=== PATIENT | male | born 1950 | race Caucasian/White ===

== ENCOUNTER 2016-08-22 18:59 | Inpatient (IN) | payer MEDICARE ==
[~2016-08-22] VITALS: Ht 177.8 cm; Wt 77.4 kg
--- NOTE | ~2016-08-22 | DS ---
PATIENT'S NAME: CARLY [facility] AGE: 66 Y [address] ROOM: [place] [address] LOCATION: [facility] ADMIT DATE: 08/22/2016 Discharge Summary DISCHARGE DATE: 08/25/2016 FAMILY PHYSICIAN: Snow Madden MD ATTENDING PHYSICIAN: Zackery Tuttle ADMITTING DIAGNOSIS: Seizure. DISCHARGE DIAGNOSIS: Seizure, secondary to alcohol and benzodiazepine withdrawal. SECONDARY DIAGNOSES: 1. Nonischemic cardiomyopathy. 2. Alcohol abuse. 3. Systolic congestive heart failure. 4. Non-obstructive coronary artery disease. 5. Elevated troponin. PROCEDURES: 1. Coronary angiogram. 2. Echocardiogram. 3. Abdominal ultrasound. 4. CT head. CONSULTATION: Neurology and Cardiology. HISTORY OF PRESENT ILLNESS: The patient is a 66-year-old male, who lives in [place], who came to spend August 22 with his friends to [place]. The patient is a chronic user of lorazepam and alcohol abuse. The patient was noted to have seizure-like activity at the outside hospital and was brought here for further evaluation. The patient noted to have postictal confusion. In the emergency room, the patient developed another episode of tonic-clonic seizure and was given Ativan with improvement of symptoms. The patient was admitted to inpatient under Medical Service for seizure activity and possible alcohol withdrawal. HOSPITAL COURSE: The patient was admitted and had CT head and MRI of the brain which showed no intracranial pathology. The patient was also noted to have elevated troponin. Troponin was trended down and was noted to increase. Cardiology was consulted. Echocardiogram was done. Echo showed global hypokinesis with EF of 10%-15%. The patient was seen by Cardiology team and had a coronary angiogram done on August 23, 2016. Angiogram showed 1-vessel coronary artery disease with proximal LAD stenosis of 60%; however, not physiologically significant for stenting. The patient's LVEDP was 14. The PATIENT'S NAME: CARLY [facility] AGE: 66 Y [address] ROOM: [place] [address] LOCATION: [facility] ADMIT DATE: 08/22/2016 Discharge Summary DISCHARGE DATE: 08/25/2016 FAMILY PHYSICIAN: Snow Madden MD ATTENDING PHYSICIAN: Zackery Tuttle patient tolerated the procedure well. The patient was started on core measures for systolic heart failure. The patient was started on lisinopril. We continued the patient's home Coreg and was also on low-dose Lasix. During his stay, the patient was observed for withdrawal and was on CIWA. The patient was seen by neurologist, and Dr. Feldman suggested to start the patient on phenobarbital 30 mg b.i.d. for help with craving and also withdrawal. During his stay, the patient's symptom of withdrawal improved. A long discussion was made with the patient about discontinuation of alcohol abuse. The patient reports that he is ready to discontinue alcohol use. Abdominal ultrasound was also done to evaluate liver. No signs of liver cirrhosis noted on abdominal ultrasound. Discussion was made initially about LifeVest. However, after a long discussion as the patient does not have ischemic cardiomyopathy, LifeVest was withheld and to continue with medical therapy and to be re-evaluated by the patient's all source intelligence technician in [place]. A long discussion was made with the patient and family. The patient is scheduled for cardiology evaluation on Sunday, August 28, 2016. Also, the patient to be followed up by primary care physician. CONDITION: Stable. DISPOSITION: Home. DISCHARGE MEDICATION: Please see MAR. DISCHARGE INSTRUCTIONS: Notify the patient not to operate heavy machinery including car. FOLLOWUP: Follow up with primary care physician and all source intelligence technician as outpatient. Greater than 30 minutes was spent on discharge planning. MD CALIXTO LIANG/julienne /[id number] d: 08/26/16 0258 t: 08/28/16 0920, DISCHARGE SUMMARY
--- NOTE | ~2016-08-22 | CATH ---
Cardiac Diagnostic + PCI Report Demographics Patient Name CARLY KIDD III Gender Male Date of 1950 Age 66 year(s) Patient Number [id number] Date of Study 08/23/2016 Visit Number [id number] Room Number [id number] [id number] Ht 177.8 cm Wt 76.3 kg Referring [facility] Primary Physician Physician Katina Jain MD Performing [facility] Secondary Physician Physician Katina RINALDI Diagnostic [facility] Assisting Physician Physician Katina RINALDI Interventional [facility] Physician Basket Braider Physician Katina RINALDI Findings and Conclusions Diagnostic Findings and Conclusion 1 vessel CAD, proximal LAD 60%. Diagnostic Recommendations iFR of LAD/Diag LVEDP 14 mmHg Interventional Findings and Conclusion iFR LAD is 0.94 iFR Diagonal is 0.98 The lesion in prox LAD is not physiologically significant and revascularization is not recommended Interventional Recommendations Continue medical treatment for cardiomyopathy Counseled against alcohol abuse. Reassess LVEF after maximizing beta blockers and SHMUEL 1 inhibitors for 3 months and reassess need for ICD. Lifevest upon dismissal Procedure Description The patient was brought to the diagnostic cardiac catheterization-EP laboratory in the fasting, non-sedated state. Informed consent was obtained in the written and verbal form after the risks and benefits were explained. The patient had no further questions and agreed to proceed. The planned puncture-incision site(s) were shaved and prepped with ChloraPrep and draped in the usual sterile manner. Conscious sedation, supplemental oxygen, and pain control medications were delivered by a registered nurse under physician guidance. Surface ECG rhythm, blood pressure measurement, and pulse oximetry were monitored throughout the procedure. Arterial access. The access site was infiltrated with lidocaine. The vessel was entered with the Seldinger technique. A sheath was advanced into the vessel and used for catheter placement. Selective left coronary angiography. A catheter was advanced into the left coronary vessel ostium under Fluoroscopic guidance. Contrast was injected by hand. Images were obtained in multiple projections. Selective right coronary angiography. A catheter was advanced into the right coronary vessel ostium under fluoroscopic guidance. Contrast was injected by hand. Images were obtained in multiple projections. Left heart catheterization. A catheter was advanced across the aortic valve to the left ventricle under fluoroscopic guidance. Resting hemodynamics were obtained. iFR measurement was performed. The vessel was entered with a guiding catheter. The iFR wire was normalized and then advanced across the lesion. Measurements were taken. Arterial artery hemostasis was achieved. The patient was transferred to a regular nursing floor via cart accompanied by a nurse. The patient left the laboratory in stable condition. Diagnostic Cath Status: Urgent Procedure Procedure Type Diagnostic procedure:Angiography:, Coronary Angios /[facility] PCI procedure:Additional Imaging:, FFR/iFR:, Initial Vessel Indications: Elevated cardiac enzymes and Low EF. The procedure was explained in detail to the patient. Risks, complications and alternative treatments were reviewed. Written consent was obtained. Medications Reviewed with Patient prior to Procedure. Angiographic Findings Dominance: Right Cardiac Arteries and Lesion Findings LMCA: Normal (0% Stenosis). LAD: Lesion on Prox LAD: Distal subsection.60% stenosis . Devices used - Verrata Pressure Wire. Number of passes: 1. Lesion on 1st Diag: Ostial.20% stenosis . LCx: Normal (0% Stenosis). RCA: Normal (0% Stenosis). Coronary Tree Procedure Data Procedure Date Date: 08/23/2016Start: 01:42 PMEnd: 02:15 PM Entry Locations - Retrograde Percutaneous access was performed through the Right Radial artery (Primary location). A 6 Fr sheath was inserted. Unsuccessful closure attempt was performed using: an R band. Hemostasis was successfully obtained using Mechanical Compression. Closure Comments: 14 cc of air in the R band. Procedure Medications Order and Administration + + + + + !Time !Medication !Dosage !Route ! + + + + + !08/23/2016 01:39 PM !Versed !1 mg !I.V. ! + + + + + !08/23/2016 01:39 PM !Fentanyl !25 mcg !I.V. ! + + + + + !08/23/2016 01:45 PM !Radial Verapamil !2.5 mg !I.A. ! + + + + + !08/23/2016 01:46 PM !Heparin (ACC_3) !2000 units !I.V. bolus ! + + + + + !08/23/2016 01:54 PM !Heparin (ACC_3) !2000 units !I.V. bolus ! + + + + + Devices Used - A5 Fr. BS JR 4 Diag. Catheterwas used for:Right coronary angiography. - A5 Fr. BS JL 3.5 Diag. Catheterwas used for:Left coronary angiography. - A6 Fr. XB 3.5 Guide Catheterwas used for:LAD Intervention. Contrast Material - Isovue 84589 ml Fluoroscopy Time: Diagnostic: 5:36 minutes. Total: 5:36 minutes. Fluoroscopy Dose: Diagnostic: 631 mGy. Total: 631 mGy. Estimated Blood Loss: 10 ml. Medical History Allergies - Other:(Norvas). Risk Factors The patient risk factors include:cerebrovascular disease, treated hypercholesterolemia, treated hypertension, last creatinine: 0.9 mg/dl, creatinine clearance: 84.78 ml/min, dyslipidemia and prior heart failure . Admission Data Admission Date: 08/22/2016 Admission Time: 10:48 PM Admit Source: Emergency department Insurance Payors: None. Admission Medications + +------+------+ + + + + !Medication !Dosage!Times !Last !Last !Administered !Comments ! ! ! !Per !Delivery !Delivery ! ! ! ! ! !Day !Date !Time ! ! ! + +------+------+ + + + + !Aspirin ! ! ! ! !Yes ! ! !(any) ! ! ! ! ! ! ! + +------+------+ + + + + !Beta ! ! ! ! !Yes ! ! !Cole ! ! ! ! ! ! ! !(any) ! ! ! ! ! ! ! + +------+------+ + + + + !Statin ! ! ! ! !Yes ! ! !(any) ! ! ! ! ! ! ! + +------+------+ + + + + Clinical Evaluation Leading to Procedure - The patient's CAD presentation was assessed as: Non-STEMI. - There were no anginal symptoms. Anti-anginal medications were prescribed during the past two weeks. The medication is: Beta Blockers. - The patient has been in a state of heart failure within the past two weeks. - The patient's heart failure status was assessed as NYHA Class II. - The reason for the patient's school laboratory technician visit is evaluation of cardiomyopathy and/or evaluation of left ventricular systolic dysfunction. Hemodynamics Condition: Rest O2 Consumption: Estimated: 192.26Heart Rate: 25 bpm Pressures (mmHg) +-----+ + !Site !Pressure ! +-----+ + !LV !92/5 ,15 ! +-----+ + !LV !/7 ,13 ! +-----+ + !AO !91/55 (73) ! +-----+ + !LV !/6 ,13 ! +-----+ + !AO !86/60 (74) ! +-----+ + !AO !85/61 (73) ! +-----+ + Valve Gradients and Areas + +---------+---------+---------+ +---------+ + !Valve !Peak !Mean !Area !Index !Flow !Source ! + +---------+---------+---------+ +---------+ + !Aortic !3 !3 ! ! ! ! ! + +---------+---------+---------+ +---------+ + !Aortic !3 !3 ! ! ! ! ! + +---------+---------+---------+ +---------+ + Shunts Oxygen Values O2 Capacity 180.88 O2 Consumption 192.26 Signatures dtt: KATINA NICHOLS dtd: 08/23/16 1342 Physician Self Edit
--- NOTE | ~2016-08-22 | CON ---
PATIENT'S NAME: CARLY [facility] AGE: 66 Y [address] ROOM: [place] [id number] LOCATION: [facility] ADMIT DATE: 08/22/2016 Consultation DISCHARGE DATE: FAMILY PHYSICIAN: PHYSICIAN, UNKNOWN ATTENDING PHYSICIAN: NY DICKERSON DATE OF CONSULTATION: 08/23/2016 REFERRING PHYSICIAN: ROBERT YO MD CARDIOLOGY CONSULTATION REASON FOR CARDIOLOGY CONSULTATION: Elevated troponins. HISTORY OF PRESENT ILLNESS: This is a 66-year-old male who experienced three tonic-clonic seizures yesterday while at a 22 of August constitution party with his friends. He denies any recent history of chest pain, shortness of breath, dyspnea on exertion, palpitations, presyncope, or syncope. He states he does have a history of congestive heart failure and had a previous episode of "elevated heart enzymes" in the past. The patient lives in [place] and once again, was visiting friends for the holiday. He denies any recent changes to his health, and denies any feelings of not feeling well or recent need for medical attention. PAST MEDICAL HISTORY: 1. Hypertension. 2. Congestive heart failure. 3. Depression and anxiety disorder. 4. Chronic alcohol use. PAST SURGICAL HISTORY: Tonsillectomy. FAMILY HISTORY: The patient's father suddenly in his 70s due to "his heart stopped." His mother had a history of lung cancer. SOCIAL HISTORY: The patient is a chronic alcohol user. He drinks two alcohol drinks per day and has done so for multiple years. He denies tobacco or other illicit drug use. CURRENT MEDICATIONS: 1. Heparin IV per ACS protocol. 2. Nitroglycerin IV as titration per chest pain. PATIENT'S NAME: CARLY [facility] AGE: 66 Y [address] ROOM: [id number] [address] LOCATION: [facility] ADMIT DATE: 08/22/2016 Consultation DISCHARGE DATE: FAMILY PHYSICIAN: PHYSICIAN, UNKNOWN ATTENDING PHYSICIAN: NY DICKERSON 3. Lopressor 25 mg p.o. twice daily. 4. Valium 5 mg p.o. every 6 hours. MEDICATION ALLERGIES: Norvasc causing angioedema. REVIEW OF SYSTEMS: Pertinent positive review of systems as listed in the HPI. All other review of systems evaluated and negative. DIAGNOSTICS: Cardiac enzyme evaluation shows a CPK of 118, then 136, then 168; CK-MB of 3.1, then 5.6, then 8.0; and troponin I of 0.112, then 1.25, and finally 2.23. He has a D-dimer level of 0.57, and a proBNP of 7253. CMS evaluation shows a sodium of 143, potassium of 3.5, BUN of 10, creatinine 0.9, glucose of 131, and a magnesium of 2.0. PHYSICAL EXAMINATION: VITAL SIGNS: Temperature 97.9, pulse 76, respirations are 11, blood pressure 141/91, and O2 saturation 96% on 2 L nasal cannula. The patient weighs 109.5 kg. SKIN: [place], warm, and dry. EYES: Sclerae clear. No xanthelasmas. ENT: Oral mucosa is pink and moist. No jugular venous distention. No carotid bruits. CHEST: Respirations are even and unlabored. Lung sounds are clear to bilateral upper lobes. They are diminished to bilateral lower lobes. HEART: Regular rate and rhythm. Normal S1 and S2. No murmurs, rubs, or gallops. ABDOMEN: Soft and nontender. MUSCULOSKELETAL: Equal muscle strength in upper and lower extremities bilaterally against resistance. EXTREMITIES: Peripheral pulses palpable. No clubbing, cyanosis, or edema. PSYCHIATRIC: Alert and oriented. Mood and affect are appropriate. IMPRESSION AND PLAN: Per Dr. Katina Hinkle: 1. Elevated cardiac enzymes. 2. History of heart failure. 3. Status post tonic-colonic seizure, awaiting Neurology evaluation. This patient is experiencing a non-ST elevation myocardial infarction with a highest troponin so far of 2.23. Evaluation of his echocardiogram also shows cardiomyopathy with severely reduced left ventricular ejection fraction. He has [place] Heart [employer] Class 2 with mild volume overload noted. He is once again, status post seizure and awaiting Neurology evaluation. We will PATIENT'S NAME: BERNABE CARROLL [facility] AGE: 66 Y [address] ROOM: [id number] [place], [place] [address] LOCATION: [facility] ADMIT DATE: 08/22/2016 Consultation DISCHARGE DATE: FAMILY PHYSICIAN: PHYSICIAN, UNKNOWN ATTENDING PHYSICIAN: [place] DICKERSON need to proceed with heart catheterization after his neurological evaluation to fully evaluate coronary anatomy. We will also plan to start an SHMUEL inhibitor after his catheterization. We will continue heparin and get his previous cardiac records for full evaluation of previous history. We will also start him on beta-juancarlos 6.25 mg p.o. twice daily, lisinopril 2.5 mg p.o. daily tomorrow morning, and we will check a fasting lipid panel. We will continue to monitor, evaluate, and treat as appropriate. Thank you for this consult. Thank you for allowing [facility] to interact in the care of this patient. ROSSI CLAUDIO APRN FOR MD SAMUEL MCDONALD/julienne /[id number] d: 08/23/16 1149 t: 08/30/16 1729, CONSULTATION REPORT
--- NOTE | ~2016-08-22 | ER ---
PATIENT'S NAME: CARLY [facility] AGE: 66 Y [address] ROOM: [place] [address] LOCATION: [facility] ADMIT DATE: 08/22/2016 ER/Outpatient Report DISCHARGE DATE: FAMILY PHYSICIAN: PHYSICIAN, UNKNOWN ATTENDING PHYSICIAN: NY DICKERSON Admission date and time documented in the medical record. I saw the patient at 1900 hours. CHIEF COMPLAINT: First-time seizure activity. HISTORY OF PRESENT ILLNESS: The patient is a 66-year-old male from [place]. The patient was out here with some friends. He got a get together on August 22, 2016. Early this evening, he was at a friend's house and had a witnessed seizure activity. The first seizure apparently lasted about 2 minutes, followed by the second seizure that lasted 3 minutes. He was postictal. Paramedics did arrive and brought the patient to the emergency room for evaluation via ambulance. On arrival, the patient was awake, responsive, oriented. He had no complaints of headache, eyes, ears, nose, throat, neck, or spine pain. No chest pain, shortness of breath. He was not diaphoretic. No abdominal pain, nausea, or vomiting. No incontinence of stool or urine. He was not breathless or pulseless. The patient does have a history of depression, hypertension, and he is on blood pressure medications, antidepressive medication. No known heart disease, lung disease. No endocrine problems, diabetes, or thyroid disease. No recent coughs, colds, flus, fever, chills, or sweats. No joint or muscle swelling, redness, or pain. No skin eruptions or rash. He has had no lightheadedness or dizziness. No history of seizure activity or other neurological problems. No endocrine problems. He does have a history of depression with some anxiety. HOME MEDICATIONS: See attached medication list. ALLERGIES: SOME TYPE OF ANTIHYPERTENSIVE, BUT HE DOES NOT KNOW THE NAME OF IT. SOCIAL HISTORY: Nonsmoker, moderate intake of alcohol. SIGNIFICANT PAST MEDICAL HISTORY: Depression, hypertension, fluid retention. OPERATIONS: PATIENT'S NAME: CARLY [facility] AGE: 66 Y [address] ROOM: [address] [address] LOCATION: [facility] ADMIT DATE: 08/22/2016 ER/Outpatient Report DISCHARGE DATE: FAMILY PHYSICIAN: PHYSICIAN, UNKNOWN ATTENDING PHYSICIAN: [place] DICKERSON Tonsillectomy and adenoidectomy. REVIEW OF SYSTEMS: All systems reviewed by me are negative with the exception of those discussed in the history of present illness. PHYSICAL EXAMINATION: VITAL SIGNS: Temperature 98, pulse 97, respirations 16, blood pressure 156/88, O2 saturation on room air is 98%. HEAD: Normocephalic. No abrasion, contusion, laceration, swelling of the scalp or face. EYES: Extraocular muscles intact. PERRL. Sclerae and conjunctivae clear, nonicteric. EARS, NOSE, THROAT: Clear. Mucous membranes moist. NECK: Negative. SPINE: Negative. LUNGS: Clear. Good air flow. No rales, rhonchi, or wheezes. HEART: Regular. Pulses are palpable. No chest wall or ribcage pain to palpation. ABDOMEN: Soft, nondistended, nontender. Active bowel tones. No organomegaly or abnormal mass palpable. No CVA tenderness. EXTREMITIES: Intact. NEUROVASCULAR: Intact. SKIN: Clear. No skin eruptions or rash. LABORATORY DATA AND X-RAYS: CT scan of the head showed no intracranial bleed, midline shift, mass effect, or skull fracture. EKG showed sinus rhythm. No acute ST elevation, ischemic change, or arrhythmia x2 two hours apart. CMS was normal except for an elevated glucose 195, low calcium of 8.2, elevated total bilirubin 1.7, elevated alkaline phosphatase 238, elevated AST of 73. Magnesium was 2. Medical blood alcohol was normal, less than 0.01. CPK was 118. Initial CK-MB was normal at 3.1; his 2-hour CK-MB was elevated at 5.6. Initial troponin was elevated at 0.112; his 2-hour troponin was elevated at 1.25. Urine drug screen was negative. Urinalysis was clear. Serum acetaminophen and serum salicylate levels were normal. Prolactin was normal at 7.5. White count was 9600, 80 segs, 7 lymphs, 13 monos, hemoglobin was 14.2 with hematocrit 40.5, platelet count 133,000. PTT was 25, pro-time was 11.1 with an INR 1.06. Chest x-ray showed no acute infiltrate or changes. We will review x-ray with the radiologist. CT scan of the head showed no intracranial bleed, midline shift, mass effect, or skull fracture. PATIENT'S NAME: BERNABE CARROLL [facility] AGE: 66 Y [address] ROOM: [address] [address] LOCATION: [facility] ADMIT DATE: 08/22/2016 ER/Outpatient Report DISCHARGE DATE: FAMILY PHYSICIAN: PHYSICIAN, UNKNOWN ATTENDING PHYSICIAN: [place] DICKERSON EMERGENCY DEPARTMENT COURSE: The patient was started on IV normal saline and fluids. I did discuss my findings with the patient. Told him that he needed to be hospitalized and have his heart checked out and probably have an EEG. He did agree to that. Short time later, he got anxious and had a short seizure and was a little bit postictal. I did give him 1 mg of Ativan. IMPRESSION: 1. Seizure activity, first time, with no known history of seizure activity or family history of seizures. His prolactin level was normal. 2. Elevated cardiac enzymes, CK-MB, and troponin, etiology is undetermined at this time but needed to have a complete cardiac evaluation. 3. Elevated glucose at 195, no history of diabetes. 4. Hypertension. 5. Depression and anxiety. 6. Mild thrombocytopenia. PLAN: I did discuss the patient with Dr. Townsend who thought he needed to be admitted for heart evaluation. I did talk with Dr. Dickerson, hospitalist, who will admit the patient to the hospital for further evaluation and treatment. The patient most likely will need to have Neurology consult and evaluation also, along with EEG, possible echocardiogram, stress test, possible cardiac cath. I again discussed my findings with the patient. He understands. MD FABRIZIO GRANT/modl /[id number] d: 08/23/165 t: 08/23/16 1809, OUTPATIENT REPORT
--- NOTE | ~2016-08-22 | CON ---
PATIENT'S NAME: BERNABE CARROLL [facility] AGE: 66 Y [address] ROOM: [id number] [place], [place] [address] LOCATION[facility] ADMIT DATE: 08/22/2016 Consultation DISCHARGE DATE: FAMILY PHYSICIAN: Justin Canales ATTENDING PHYSICIAN: NY DICKERSON DATE OF CONSULTATION: 08/23/2016 REFERRING PHYSICIAN: ROBERT YO MD NEUROLOGY CONSULTATION TIME SEEN: 6:00 p.m. HISTORY OF PRESENT ILLNESS: Mr. Carroll came in the overnight with a generalized tonic-clonic seizure. The patient never had a seizure before in his life. He is a known heavy alcoholic for many years drinking upwards of decades. He has some evidence in the past according to his family of liver cirrhosis, and now he is known to have likely a cardiomyopathy, possibly associated with alcohol use for years. He came in as part of his workup for noted elevation in troponin. Today, he had a cardiac catheterization, which showed no significant evidence for coronary artery disease associated with his severely decreased ejection fraction of nearly 15%. 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 The etiology for his generalized seizure is probably from him acutely stopping 2 medications; one was the Wellbutrin, which he is on for depression, the other one is Ativan, additionally used on a fairly frequent basis, almost on a daily basis for anxiety. The patient simply had run out of this medication for upwards of 5 days. Since he did not stop alcohol use, it was unlikely that this was an alcohol withdrawal seizure. It is known that alcohol withdrawal seizures are usually within 24 hours of stopping alcohol, and again the patient did not stop alcohol, but delayed seizures are often associated with medication withdrawal, perhaps up to a few days. This seems to be the case with this patient. Today, the patient was alert and oriented, though he was on CIWA protocol for alcohol withdrawal. He clearly had some symptoms of alcohol withdrawal where he appeared to be sitting in bed a bit agitated, but nonetheless was able to give a very adequate history. He seemed very fidgety. Often times, he had to sit up and move around. He was noted to be tachycardic on the monitor. Clear signs of some alcohol withdrawal symptomatology; however, he was not confused. He did not have any delirium at all. During his time here, he had no fevers. His laboratory results do show evidence for acute alcohol use from low platelet count as well as AST out of proportion to ALT. He admits that he is an alcoholic, and he has used his medications for PATIENT'S NAME: BERNABE CARROLL [facility] AGE: 66 Y [address] ROOM: [id number], [place] [address] [facility] ADMIT DATE: 08/22/2016 Consultation DISCHARGE DATE: FAMILY PHYSICIAN: Physician, New ATTENDING PHYSICIAN: NY DICKERSON. He has suffered from this for decades, and it got worse after the of his nearly 15 years ago. SOCIAL HISTORY: He lives alone. He has 2 young sons, who fairly involved in his medical care. They were present today. He is mostly sedentary but does do some work around the house. He does go once the year to the [facility] for vacation where he has an old family home, otherwise he occasionally does do some chores outside of the home. Admits to very little activity otherwise. Does not smoke cigarettes. He does not use illicit drugs other than alcohol. FAMILY HISTORY: Noncontributory here. There is no history of seizures. No history of stroke in this patient. MEDICATIONS: 1. Phenobarbital 30 mg twice a day started by myself today. 2. Carvedilol 3.125 mg twice a day. 3. Lisinopril 2.5 mg p.o. daily. 4. Lorazepam is given on a [facility] protocol. 5. Atorvastatin and aspirin are currently ordered but being held presently. REVIEW OF SYSTEMS: Mr. Carroll has a known history of cardiomyopathy with very minor symptoms of congestive heart failure. He does not have any severe issues currently. He did come in with elevated troponin and had a coronary artery study today, which findings were pending. He apparently was on some mild diuretics in the past. He denies dyspnea on exertion. He is able to do light stairs becoming short of breath. He denies any recent weight gain from fluid retention. Seizure history, none other than this one-time seizure event. He is a chronic alcoholic. Denies a history of diabetes. Perhaps, he has a mild history of hypertension. The review of systems is within normal limits. PHYSICAL EXAMINATION: GENERAL: Mr. Carroll is a slightly disheveled-appearing male but in no acute distress. He is a bit fidgety. He answers questions appropriately. I did not find him to have any deficits with his memory. At times, he had to sit up or move around in bed due to some mild agitation. His fidgetiness continued throughout the whole discussion, yet he remained completely lucid. He was noted to be tachycardic on the monitor, in normal sinus rhythm. NEUROLOGIC: Cranial nerves 2 through 12 were intact. His motor exam revealed normal pulse, normal tone and bulk of the upper and lower extremities. His power was 5/5 grade. Coordination on [id number] was intact. Rapid alternating hand movements were a bit shaky but accurate. He did not have any dysmetria on finger to nose. His gait was deferred presently so. PATIENT'S NAME: BERNABE CARROLL [facility] AGE: 66 Y [address] ROOM: [place] [address] LOCATION[facility] ADMIT DATE: 08/22/2016 Consultation DISCHARGE DATE: FAMILY PHYSICIAN: Justin Canales ATTENDING PHYSICIAN: NY DICKERSON IMPRESSION: Mr. Carroll had a generalized seizure, likely from the withdrawal of known chronic use of Ativan and Wellbutrin. He stopped these medications as he did not have these medications prescribed for few days. He says that he had simply run out of medications. I would not think that this is a seizure related to alcohol withdrawal as there seemed to have been a more distinct history here that the medication withdrawal caused a delay for few days prior to him having a generalized seizure since he is a fairly consistent daily alcohol user, often with binge drinking; not stopped alcohol use and alcohol withdrawal seizure is unlikely, especially considering he has never had an alcohol withdrawal seizure for decades, he continues to drink. I discussed with him the nature of cirrhosis and this is irreversible. I am not 100% unsure if he has end-stage liver disease as he certainly does not look to be fluid overloaded, but there is some evidence of poor levels of albumin. His coagulation profile is currently normal. I asked him directly if he wants to try to get off alcohol, and he said definitely this was a major wake-up call for him. I discussed with him that we often use substitution therapy with the use of phenobarbital. We use this often on alcoholics as this medication can mimic the effects of alcohol in the brain and may be helpful in weaning the patient off alcohol, so he is not to have similar cravings for stopping alcohol. Phenobarbital can be used for many weeks if not months as a substitution for alcohol. I have no issue for him using both phenobarbital as well as Ativan as a protocol, but often if the delirium tremens period is over, usually up to 1 week, we can usually just use phenobarbital alone at a low dose of 30 mg twice a day. I would like to see the patient on neurologic followup to see how he is doing and maybe fine tune the phenobarbital with time, the success of getting him off alcohol is of course patient related. I do not see any reason why the patient can not restart his Wellbutrin, though stopping this particular medication definitely would lower the patient's seizure threshold. It is like stopping acute use of benzodiazepine. Benzodiazepines have been used steadily for months. I will be available to speak with the hospitalist if they have any questions. MD DARIO AQUINO/modl /[id number] d: 08/24/16 0237 t: 08/30/16 1140, CONSULTATION REPORT
--- NOTE | ~2016-08-22 | ECHO ---
Transthoracic Echocardiography Report (TTE) Demographics Patient Name BERNABE CARROLL III Date of Study 08/23/2016 Patient Number [id number] Visit Number [id number] Date of 1950 Room Number G6226 Accession Number [id number] Gender Male Age 66 year(s) Referring Marry Jain MD Record Librarian Rose Marin RDCS, Physician RVT Physician Interpreting Arin Ambriz Counter Clerk [employer] Physician MD Supervising Ordering Physician Marry Jain MD, MD/P Nurse Stress Caregiver Assisted Living Conclusions Summary Dilated cardiomyopathy with severely reduced LV systolic function. The estimated left ventricular ejection fraction is 10-15%. There is severe global LV hypokinesis/akinesis with regional wall motion abnormalities. Basal lateral wall is the only segment that moves best. Mild septal left ventricular hypertrophy. Diastolic assessment reveals Grade III restrictive diastolic dysfunction. Definity contrast iv used, there is no filling defect suggestive of LV apical thrombus. The left atrium is severely dilated by LA volume index measurement. Moderate tricuspid regurgitation by color Doppler. There is mild pulmonary hypertension. The pulmonary pressure (RVSP) is 45 mmHg. Procedure Type of Study TTE procedure:2D Echocardiogram, Echo with Contrast. Procedure Date Date: 08/23/2016 Start: 07:25 AM Study Location: Inpatient Portable Technical Quality: Adequate visualization Indications:Elevated Troponin. Appropriate Use Criteria: 9 Patient Status: Routine Contrast Medium: Definity. Amount - 4 ml HR: 117 bpm BP: 110/56 mmHg M-Mode/2D Measurements LV Diastolic Dimension: 5.83 cm LV Systolic Dimension: 5.43 cm LV Septum Diastolic: 1.29 cm LV PW Diastolic: 0.93 cm Cardiac Output: 4.52 l/min LA Dimension: 4.3 cm LVOT: 2 cm LVOT VTI: 12.3 cm RV Base: 3.08 cm LV Stroke volume: 38.62 ml RV Length: 7.33 cm TAPSE: 2.13 cm TDI-S': 15.2 cm/s Doppler Measurements AV Peak Velocity: 0.81 m/s MV Peak E-Wave: 1 m/s AV Peak Gradient: 2.6 mmHg AV Mean Gradient: 2 mmHg MV P1/2t: 19 msec LVOT Peak Velocity: 0.74 m/s TR Velocity:3.03 m/s PV Peak Velocity: 0.87 m/s TR Gradient:36.72 mmHg PV Peak Gradient: 2.99 mmHg Estimated RAP:8 mmHg Estimated PASP: 44.72 mmHg Estimated RVSP: 45 mmHg A' Septal Velocity: 0.04 m/s E' Septal Velocity: 0.08 m/s A' Lateral Velocity: 0.05 m/s E' Lateral Velocity: 0.11 m/s Findings Left Ventricle Mild septal left ventricular hypertrophy. Diastolic assessment reveals Grade III restrictive diastolic dysfunction. Definity contrast iv used, there is no filling defect suggestive of thrombus. Right Ventricle Normal right ventricle structure and function. Left Atrium The left atrium is severely dilated by LA volume index measurement. Right Atrium Normal right atrial size. IVC measures 2.18 cm with inspiratory collapse. Mitral Valve Mild mitral regurgitation by color Doppler. Aortic Valve Normal appearing aortic valve structure and function. Tricuspid Valve Moderate tricuspid regurgitation by color Doppler. There is mild pulmonary hypertension. The pulmonary pressure (RVSP) is 45 mmHg. Pulmonic Valve Normal pulmonic valve structure and function. Pericardial Effusion No evidence of pericardial effusion. Miscellaneous Visualized portions of the aortic root and ascending aorta appear normal in size. Pleural Effusion No evidence of pleural effusion. Signature dtt: RIC NICHOLS dtd: 08/23/16 0725 Physician Self Edit
--- NOTE | ~2016-08-22 | HP ---
PATIENT'S NAME: BERNABE CARROLL [facility] AGE: 66 Y [address] ROOM: [address] [address] LOCATION: [facility] ADMIT DATE: 08/22/2016 History & Physical DISCHARGE DATE: FAMILY PHYSICIAN: PHYSICIAN, UNKNOWN ATTENDING PHYSICIAN: NY DICKERSON DATE OF SERVICE: CHIEF COMPLAINT: New onset seizure activity. HISTORY OF PRESENT ILLNESS: This is a 66-year-old male, who lives in [place], came here to spend August 22, 2016 with his friends. The story is that the patient is a chronic user of p.o. lorazepam 1 mg at bedtime for insomnia. He has been taking at least 5 days per week and for the last year consistently. His last dose was last Sunday. He also is an alcohol drinker about 2 cups of martini and sometimes 2 cans of beer every day for many years. His last drink was this morning. The story is that today around 4:00 p.m., he was sitting outside with his friends just chatting, and all of a sudden, he developed this generalized tonic-clonic seizure, which his friends described as shaking of both legs and both hands and also both eyes rolling upwards and unable to speak. The episode lasted about few minutes, and then he went into postictal confusion. When he became oriented, he developed another episode of seizure, again lasting a few minutes as well and again became postictal. So the friends called 911, and EMT brought the patient over here for evaluation. In the emergency room, the patient developed another episode of tonic-clonic seizure lasting around 3 minutes and stopped after getting 1mg iv ativan and became postictal afterwards. By the time I saw the patient, the patient was already alert and oriented x3. The patient states that he has never had seizure before, and there is no seizure disorder in the family either. The patient denies any chest pain, shortness of breath, palpitation, diaphoresis, nausea, vomiting, or abdominal pain. He has some occasional loose stool for a few days, but now it has resolved. He denies any premature coronary artery disease in the family. He does have bilateral leg edema and he is not sure how long and when he had the edema and also unsure if is worse or better than baseline. REVIEW OF SYSTEMS: As mentioned in the history of present illness. All other systems were reviewed and were negative except those mentioned in the history of present illness. PAST MEDICAL HISTORY: 1. Chronic alcohol use disorder. PATIENT'S NAME: BERNABE CARROLL [facility] AGE: 66 Y [address] ROOM: [id number] [place], [place] [address] LOCATION: [facility] ADMIT DATE: 08/22/2016 History & Physical DISCHARGE DATE: FAMILY PHYSICIAN: PHYSICIAN, UNKNOWN ATTENDING PHYSICIAN: NY DICKERSON 2. History of congestive heart failure. 3. Hypertension. 4. Depression. 5. Anxiety disorder. 6. He says that about 4 years ago, he was hospitalized in [place]; and at that time, he was found to have an elevated troponin, but he denies any chest pain at that time. He says that the physician over there told him that he had some kind of infection in the heart, likely from viral infection, and he had multiple tests performed, and he was told that his coronary arteries were clean. ALLERGIES: NORVASC, HE SAYS IT CAUSES ANGIOEDEMA. HOME MEDICATIONS: Currently has been reconciled, but he does take p.o. lorazepam 1 mg every night at bedtime p.r.n. for insomnia, and he takes about 5 days per week, 1 year already. SOCIAL HISTORY: He is a chronic alcohol drinker on a daily basis about 2 cups of a martini every day for many years. His last drink was this morning. He denies any cigarette or any illegal drug use. PAST SURGICAL HISTORY: Tonsillectomy. FAMILY HISTORY: He states that his father had some kind of heart problem, likely heart failure, but he is not sure. His mother had lung cancer; she was a heavy smoker. PHYSICAL EXAMINATION: VITAL SIGNS: At the time of dictation, his temperature was 98, blood pressure was 138/85, heart rate was 76, respiration was 14, saturation was 97% on room air. GENERAL APPEARANCE: The patient is alert and oriented x3, in no acute distress. HEENT: Pupils equally round and reactive to light. Extraocular muscles intact. Anicteric sclerae. Nasal turbinates are normal bilaterally. Moist oral mucosa. NECK: No JVD. CARDIOVASCULAR: Regular rate and rhythm. No murmur, no rubs, no gallops. Normal S1, S2. RESPIRATORY: Clear. No rales, no rhonchi, no wheezing, no crackles. PATIENT'S NAME: BERNABE CARROLL [facility] AGE: 66 Y [address] ROOM: [address] [place] [address] LOCATION: [facility] ADMIT DATE: 08/22/2016 History & Physical DISCHARGE DATE: FAMILY PHYSICIAN: PHYSICIAN, UNKNOWN ATTENDING PHYSICIAN: NY DICKERSON ABDOMEN: Soft, no mass, nondistended, nontender, bowel sounds present. EXTREMITIES: He has edema in bilateral lower extremities. He states this is chronic and has not worsened. NEUROLOGICAL: Grossly nonfocal. SKIN: No ulcer, no rash, no cyanosis. LABORATORY DATA: Troponin 0.112, followed by 1.250. CPK 118, followed by 136. CK-MB 3.1, followed by 5.6. White blood cell 9.6, hemoglobin 14.2, hematocrit 40.5, platelet 133. Glucose 195, BUN 11, creatinine 0.9, sodium 142, potassium 3.9, chloride 108, CO2 of 23, calcium 8.2. Total protein 5.7, albumin 2.3, AST 73, ALT 39, alkaline phosphatase 238, total bilirubin 1.7. Magnesium 2.0. Anion gap 14.9. GFR more than 60. INR 1.06. Urinalysis negative for UTI. Urine drug screen, all negative. Alcohol level, Tylenol level, and aspirin level all less than the toxic level. Prolactin 7.5. IMAGING DATA: CT of the head without contrast on admission based on the preliminary report, he has no acute intracranial abnormality. EKG on admission, the first one was performed at 7:35 p.m. showed sinus rhythm with PVC, heart rate of 95. No acute ischemic changes. QRS 103, QTc 453, RI 123. Second EKG on admission was done at 8:54 p.m. and showed sinus rhythm, heart rate of 91 with a QRS of 96, RI of 126, QTc of 450. Again, no acute ischemic changes. ASSESSMENT AND PLAN: 1. Regarding his new onset seizure: Differential here could be benzodiazepine withdrawal from suddenly stopped using lorazepam since 2 days ago. I will cover him with long-acting benzodiazepine with p.o. Valium 5 mg every 6 hours with holding parameters. IV Ativan p.r.n. 2 mg q.5 minutes for active seizure. Seizure precaution. Aspiration precaution. Fall precaution. Please follow up with the official report of the CT of the head in the morning. I will consult Neurology in the morning as well. Second differential could be from alcohol withdrawal seizure; however, his last drink was this morning, probably less likely. However, I will put him on the CIWA protocol because he is at high risk of alcohol withdrawal. Further plan will depend on clinical course. 2. Regarding his hypertension: Home medications will need to be reconciled then can be addressed. 3. Regarding his history of heart failure: Unclear which type. I will get a transthoracic echo in the morning, and also Cardiology consult for the troponin elevation. PATIENT'S NAME: BERNABE CARROLL [facility] AGE: 66 Y [address] ROOM: [place] [address] LOCATION: [facility] ADMIT DATE: 08/22/2016 History & Physical DISCHARGE DATE: FAMILY PHYSICIAN: PHYSICIAN, UNKNOWN ATTENDING PHYSICIAN: NY DICKERSON 4. Regarding his troponin elevation: The patient denies any chest pain. EKG is nonischemic. We will cycle cardiac enzymes every 6 hours. ER physician, Dr. Mathis, already spoke to the on-call digital product specialist, Dr. Townsend, regarding troponin elevation; and given the patient denies any chest pain and EKG was nonischemic, therefore, the decision was not to proceed with IV heparin drip at the moment. We will watch the patient very closely for any chest pain. I will also get the medical records from the [facility] back 4 years ago about his troponin elevation, and he has a history of what sounds like a viral myocarditis to me but details not clear but patient and patient's son (Will) did say that he was told his heart was clean at that time. 5. Regarding his transaminitis: This is from the alcohol induced. I will get a complete abdominal ultrasound in the morning. Start him on the CIWA protocol. Further plan will depend on clinical course. 6. Regarding his anxiety: The patient is currently getting a standing dose of p.o. Valium. 7. Deep venous thrombosis prophylaxis: He will be getting Lovenox subcu. 8. Code status: He is a full code. Update: overnight, his tropnins are trending up, still no chest pain, EKGx2 still nonischemic but just sinus tachycardia HR in 110's, I called Dr. Townsend again to update him about tropinin upward trending and he agreed to start ACS protocol with iv heparin drip, po lopressor, po aspirin, and po lipitor. Will start ACS protocol. TTE to be done early in AM and Dr bourne will see patient in AM. (Monitor My Meds will notify Dr townsend once TTE is done). I also called patient's son (Will, Tel: [phone]) and updated him about the plans. Will d/c SC lovenox since patient will be on heparin drip. Time spent in care on the day of admission 55 minutes, where 35 minutes were spent on counseling, including going over the plan of care with the patient and the patient's friends, and also by calling his son over the phone. I addressed all their questions to their satisfaction. The remainder of the time was spent on chart review, interview, and also on the physical examination. Further plan will depend on clinical course. NY DICKERSON MD CC/julienne /[id number] D: 223 T: 700 HISTORY & PHYSICAL
[2016-08-22 19:23] LABS: BASOPHIL % 0.4 %; EOSINOPHIL % 0.1 %; HEMATOCRIT 40.5 % (37.0-53.0); HEMOGLOBIN 14.2 g/dL (11.0-16.0); IMMATURE GRANULOCYTE # 0.1 K/uL (0.0-0.3); IMMATURE GRANULOCYTE % 0.5 %; LYMPHOCYTE # 0.6 K/uL (0.8-4.0); LYMPHOCYTE % 6.6 %; MCHC 35.1 gm/dL (32.0-36.5); MCV 96.9 fl (83.0-98.0); MONOCYTE # 1.2 K/uL (0.0-1.0); MONOCYTE % 12.8 %; MPV 10.1 fl (9.4-12.4); NEUTROPHIL # (ANC) 7.6 K/uL (1.4-9.0); NEUTROPHIL % 79.6 %; NRBC % 0 /100WBC (0-0.00); PLATELET COUNT 133 K/uL (150-450); RBC 4.18 M/uL (3.50-5.50); RDW-CV 12.9 % (11.9-14.6); WBC 9.6 K/uL (4.0-11.0)
[2016-08-22 19:32] LABS: INR - (THERAPEUTIC) 1.06 (0.92-1.07); PROTIME 11.1 SECONDS (9.8-11.4); PTT 25 SECONDS (25-32)
[2016-08-22 19:46] LABS: ALBUMIN 2.3 gm/dL (3.5-5.0); ALT 39 IU/L (12-78); ANION GAP 14.9 (10.0-19.0); AST 73 IU/L (10-40); BLOOD UREA NITROGEN 11 mg/dL (6-24); CALCIUM 8.2 mg/dL (8.5-10.5); CHLORIDE 108 mMol/L (96-110); CO2 23 mMol/L (22-32); CPK 118 IU/L (35-332); CREATININE 0.9 mg/dL (0.6-1.3); ESTIMATED GFR (MDRD EQUATION) > 60; POTASSIUM 3.9 mMol/L (3.7-5.1); SODIUM 142 mMol/L (135-145); TOTAL BILIRUBIN 1.7 mg/dL (0.0-1.5); TOTAL PROTEIN 5.7 g/dL (6.0-8.4)
[2016-08-22 19:57] LABS: BILIRUBIN URINE NEGATIVE (NEGATIVE); BLOOD URINE NEGATIVE /UL (NEGATIVE); COLOR URINE YELLOW (YELLOW); GLUCOSE URINE 100 mg/dL (NEGATIVE); KETONE URINE 15 mg/dL (NEGATIVE); LEUKOCYTES URINE NEGATIVE /UL (NEGATIVE); NITRITE URINE NEGATIVE (NEGATIVE); PROTEIN URINE 30 mg/dL (NEGATIVE); TURBIDITY URINE CLEAR (CLEAR); UROBILINOGEN URINE 1 mg/dL (NORMAL)
[2016-08-22 19:58] LABS: ALK PHOS 238 IU/L (33-138)
[2016-08-22 20:07] LABS: WBC URINE RARE #/HPF (NEGATIVE)
[2016-08-22 20:10] LABS: BACTERIA URINE NEGATIVE (NEGATIVE); EPITHELIAL URINE RARE #/HPF (NEGATIVE); RBC URINE NEGATIVE #/HPF (NEGATIVE)
[2016-08-22 20:15] LABS: BARBITURATE NEGATIVE (NEGATIVE); COCAINE NEGATIVE (NEGATIVE); OPIATES NEGATIVE (NEGATIVE)
[2016-08-22 20:18] LABS: AMPHETAMINE NEGATIVE (NEGATIVE)
[2016-08-23 03:33] LABS: HEMATOCRIT 38.8 % (37.0-53.0); HEMOGLOBIN 13.3 g/dL (11.0-16.0); MCH 34.1 pg (27.0-34.0); MCHC 34.3 gm/dL (32.0-36.5); MCV 99.5 fl (83.0-98.0); MPV 10.6 fl (9.4-12.4); RBC 3.9 M/uL (3.50-5.50); RDW-CV 13.2 % (11.9-14.6); WBC 10.5 K/uL (4.0-11.0)
[2016-08-23 03:54] LABS: ALK PHOS 196 IU/L (33-138); ALT 31 IU/L (12-78); ANION GAP 11.5 (10.0-19.0); AST 55 IU/L (10-40); BLOOD UREA NITROGEN 10 mg/dL (6-24); CALCIUM 7.7 mg/dL (8.5-10.5); CHLORIDE 109 mMol/L (96-110); CO2 26 mMol/L (22-32); CREATININE 0.9 mg/dL (0.6-1.3); ESTIMATED GFR (MDRD EQUATION) > 60; PHOSPHORUS 3.1 mg/dL (2.5-4.9); POTASSIUM 3.5 mMol/L (3.7-5.1); SODIUM 143 mMol/L (135-145); TOTAL BILIRUBIN 1.6 mg/dL (0.0-1.5); TOTAL PROTEIN 5.2 g/dL (6.0-8.4)
[2016-08-23 03:55] LABS: ALBUMIN 1.9 gm/dL (3.5-5.0)
[2016-08-24 08:31] LABS: ALK PHOS 154 IU/L (33-138); ALT 27 IU/L (12-78); ANION GAP 10.1 (10.0-19.0); AST 60 IU/L (10-40); BLOOD UREA NITROGEN 11 mg/dL (6-24); CHLORIDE 108 mMol/L (96-110); CO2 28 mMol/L (22-32); CREATININE 0.8 mg/dL (0.6-1.3); ESTIMATED GFR (MDRD EQUATION) > 60; MAGNESIUM 1.8 mg/dL (1.8-2.6); POTASSIUM 3.1 mMol/L (3.7-5.1); SODIUM 143 mMol/L (135-145)
[2016-08-24 08:34] LABS: ALBUMIN 1.7 gm/dL (3.5-5.0); TOTAL BILIRUBIN 1.2 mg/dL (0.0-1.5); TOTAL PROTEIN 4.6 g/dL (6.0-8.4)
[2016-08-24] MEDS ORDERED: LOMOTIL1 TAB PO (13:03)
[2016-08-24] MEDS ORDERED: ATIVAN 1 MG1 MG PO (13:04)
[2016-08-24] MEDS ORDERED: K-TAB ER20 MEQ PO (13:04)
[2016-08-24] MEDS ORDERED: LASIX20 MG PO (13:05)
[2016-08-24] MEDS ORDERED: WELLBUTRIN XL300 M1 PO (13:05)
[2016-08-24] MEDS ORDERED: COREG12.5 MG PO (13:05)
[2016-08-24] MEDS ORDERED: WELLBUTRIN XL150 MG PO (13:54)
[2016-08-25] MEDS ORDERED: ZESTRIL2.5 MG PO (14:18)
[2016-08-25] MEDS ORDERED: PHENOBARBITAL30 MG PO (14:18)
[2016-08-25] MEDS ORDERED: LIPITOR40 MG PO (14:19)
[2016-08-25] MEDS ORDERED: CHILDREN'S ASPI81 MG PO (14:20)
[2016-08-25] MEDS ORDERED: THIAMINE HCL100 MG PO (14:21)
== END 2016-08-25 14:48 | disposition disaster alternative care site (69) | DRG 100 ==
LOC: GMED 18:59 → GICU 22:48 → EDBD 22:48 → GICU 08-23 03:42
PROVIDERS: Emergency Medicine; ADMIT Internal Medicine
PROC: B215YZZ Fluoroscopy of Left Heart using Other Contrast (ICD-10-PCS; principal; 2016-08-23)
PROC: 4A023N7 Measurement of Cardiac Sampling and Pressure, Left Heart, Percutaneous Approach (ICD-10-PCS; principal; 2016-08-23)
DX: G40.89 Other seizures (principal); I21.4 Non-ST elevation (NSTEMI) myocardial infarction; I42.8 Other cardiomyopathies; I50.22 Chronic systolic (congestive) heart failure; F10.239 Alcohol dependence with withdrawal, unspecified; F13.239 Sedative, hypnotic or anxiolytic dependence with withdrawal, unspecified; F19.939 Other psychoactive substance use, unspecified with withdrawal, unspecified; I11.0 Hypertensive heart disease with heart failure; F41.9 Anxiety disorder, unspecified; R74.0 Nonspecific elevation of levels of transaminase and lactic acid dehydrogenase [LDH]; I25.10 Atherosclerotic heart disease of native coronary artery without angina pectoris
CPT/HCPCS: C1769; C1887; C8929; G0480; J1644; J1940; J2060; J2250; J3010; J3411; J7030; Q9957

== ENCOUNTER → 2016-08-22 | Outpatient (CLI) | payer MEDICARE ==
[~2016-08-22] MED LIST: ATIVAN 1 MG1 MG PO; CHILDREN'S ASPI81 MG PO; COREG12.5 MG PO; K-TAB ER20 MEQ PO; LASIX20 MG PO; LIPITOR40 MG PO; LOMOTIL1 TAB PO; PHENOBARBITAL30 MG PO; THIAMINE HCL100 MG PO; WELLBUTRIN XL150 MG PO; WELLBUTRIN XL300 M1 PO; ZESTRIL2.5 MG PO
== END | disposition disaster alternative care site (69) ==
LOC: EDBD 18:28 → GAMB 18:28
DX: R56.9 Unspecified convulsions (principal); I10 Essential (primary) hypertension; F32.9 Major depressive disorder, single episode, unspecified; Z79.899 Other long term (current) drug therapy